=== PATIENT | male | born 1955 | race Two or more races ===

== ENCOUNTER 2017-01-30 06:57 | Inpatient (IN) | payer MEDICAID ==
[2017-01-30] VITALS (7 sets, daily range): BP systolic 130–164; BP diastolic 68–97
[~2017-01-30] VITALS: Ht 180.3 cm; Wt 85.9 kg
[~2017-01-30 06:57] MED LIST: HALOPERIDOL 5 MG TABLET PO PRN; ZOLPIDEM TARTRATE 10 MG TABLET PO PRN
[2017-01-30] MEDS ORDERED: QUET25TA PO (07:18)
[2017-01-30] MEDS ORDERED: MEPE50TA4 PO (07:18)
[2017-01-30 07:38] LABS: BASOPHILS % (AUTO) 0.4 % (0.0-2.0); EOSINOPHILS % (AUTO) 0.4 % (1.0-6.0); HEMATOCRIT 52.2 % (41-53); HEMOGLOBIN 18.2 g/dL (13.5-17.5); LYMPHOCYTES % (AUTO) 13.4 % (22.0-44.0); MEAN CORPUSCULAR HEMOGLOBIN 34.3 pg (26.0-34.0); MEAN CORPUSCULAR HGB CONC 34.8 G/dL (31.0-37.0); MEAN CORPUSCULAR VOLUME 98 fL (80-100); MONOCYTES # (AUTO) 0.3 K/uL (0.1-1.0); MONOCYTES % (AUTO) 4.5 % (2.0-9.0); NEUTROPHILS # (AUTO) 5.9 K/uL (1.8-7.7); NEUTROPHILS % (AUTO) 81.3 % (40.0-70.0); PLATELET COUNT (AUTO) 194 K/uL (150-450); RED CELL DISTRIBUTION WIDTH 13.1 % (11.5-14.5)
[2017-01-30 07:47] LABS: ANION GAP 5 mmol/L (8-16); CALCIUM, TOTAL 9.1 mg/dL (8.8-10.5); CARBON DIOXIDE 33 mmol/L (22-29); CHLORIDE 101 mmol/L (98-107); CREATININE 1.05 mg/dL (0.60-1.30); GLOMERULAR FILTR. RATE CALC > 60 mL/min (>60); GLUCOSE,RANDOM 123 mg/dL (70-110); POTASSIUM 3.8 mmol/L (3.5-5.1); SODIUM SERUM 139 mmol/L (136-145); UREA NITROGEN, BLOOD 11 mg/dL (7-18)
[2017-01-30 07:53] LABS: ALANINE AMINOTRANSFERASE 37 U/L (12-78); ALBUMIN 4.2 g/dL (3.4-5.0); ALKALINE PHOSPHATASE 80 U/L (46-116); ASPARTATE AMINOTRANSFERASE 18 U/L (15-37); BILIRUBIN,TOTAL 0.5 mg/dL (0.1-1.0); TOTAL PROTEIN, SERUM 7.7 g/dL (6.4-8.2)
[2017-01-30] MEDS ORDERED: INFLUENZA VIRUS VACCINE QVS 2017-18 (3YR+)/PF 60 MCG/0.5 ML SYRINGE IM ONE (12:30)
[2017-01-30] MEDS ORDERED: PNEUMOCOCCAL VACCINE POLYVALENT 0.5 ML VIAL [PPSV23] IM ONE (13:30)
[2017-01-31 06:58] VITALS: BP 126/75
[2017-01-31 08:02] VITALS: BP 101/64
[2017-01-31] MEDS: QUEtiapine FUMARATE 25 MG TABLET PO SCH ×2 (11:59→16:06)
[2017-01-31] MEDS: LORazepam 2 MG TABLET PO PRN (16:07)
[2017-01-31 16:09] VITALS: BP 117/64
[2017-01-31] MEDS ORDERED: MIRTAZAPINE 15 MG TABLET PO SCH (21:00)
[2017-02-01 06:35] VITALS: BP 105/61
[2017-02-01] MEDS: QUEtiapine FUMARATE 25 MG TABLET PO SCH ×2 (08:15→16:57)
[2017-02-01 08:20] VITALS: BP 113/64
[2017-02-01 16:00] VITALS: BP 110/70
[2017-02-01] MEDS: LORazepam 2 MG TABLET PO PRN (16:57)
[2017-02-01] MEDS ORDERED: MIRTAZAPINE 15 MG TABLET PO SCH (21:00)
[2017-02-02 06:37] VITALS: BP 106/65
[2017-02-02 08:11] VITALS: BP 103/64
[2017-02-02] MEDS: QUEtiapine FUMARATE 25 MG TABLET PO SCH (08:42)
[2017-02-02] MEDS ORDERED: MIRT30 PO (12:17)
== END 2017-02-02 13:30 | disposition home or self-care (01) | DRG 753 ==
LOC: BV PSY EVL 06:57 → AHU 09:32 → B3A 11:22
PROVIDERS: ADMIT Psychiatry & Neurology Psychiatry; ATTEND Psychiatry & Neurology Child & Adolescent Psychiatry
DX: F31.31 Bipolar disorder, current episode depressed, mild (principal); F25.0 Schizoaffective disorder, bipolar type; R45.851 Suicidal ideations; I10 Essential (primary) hypertension; F17.200 Nicotine dependence, unspecified, uncomplicated; R73.9 Hyperglycemia, unspecified; Z83.3 Family history of diabetes mellitus; Z82.49 Family history of ischemic heart disease and other diseases of the circulatory system
CPT/HCPCS: 99285; G0480